=== PATIENT | female | born 1995 | race American Indian/Alaskan Native ===

== ENCOUNTER 2017-10-04 00:40 | Emergency (ER) | payer SELFPAY ==
[2017-10-04 00:59] VITALS: BP 144/111
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
== END 2017-10-04 03:05 | disposition home or self-care (01) ==
LOC: ED 00:40
DX: S60.812A Abrasion of left wrist, initial encounter (principal); R51 Headache; S00.83XA Contusion of other part of head, initial encounter; Y08.89XA Assault by other specified means, initial encounter; Y93.89 Activity, other specified; Y92.89 Other specified places as the place of occurrence of the external cause; Y99.8 Other external cause status; J45.909 Unspecified asthma, uncomplicated
CPT/HCPCS: 99282